=== PATIENT | female | born 1970 | race American Indian/Alaskan Native ===

== ENCOUNTER 2017-11-16 02:27 | Emergency (ER) | payer SELFPAY ==
[2017-11-16 03:43] VITALS: BP 132/83
== END 2017-11-16 03:35 | disposition left against medical advice (07) ==
LOC: ED 02:27
DX: F41.9 Anxiety disorder, unspecified (principal); Z53.21 Procedure and treatment not carried out due to patient leaving prior to being seen by health care provider